=== PATIENT | female | born 1955 | race Caucasian/White ===

== ENCOUNTER 2021-05-04 06:59 | Emergency (ER) | payer MEDICARE, OTHER ==
[2021-05-04 07:30] VITALS: PULSE 61; O2SAT 99
[2021-05-04] MEDS ORDERED: TORAdol 30 mg Injection IM ONE (07:32)
[2021-05-04] MEDS ORDERED: TORAdol 30 mg Injection ONE (07:41)
--- NOTE | 2021-05-04 07:48 | ERPHSYRPT ---
- History of Present Illness Time Seen by Provider: 05/04/21 07:44 Source: patient Exam Limitations: no limitations Patient Subjective Stated Complaint: Pt fell over her suitcase in the dark at home and landed on her left shoulder and chin Triage Nursing Assessment: Pt was brought to the ER by her sister, benjamin souza, rates pain as 8/10, left shoulder/clavicle appears to be dislocated, fell on chin and states that it is sore but not real concerned, denied LOC, pt fell earlier in the week [facility] and has a sutured right eyebrow, denies any other injuries at this time Physician History: Pt fell over her suitcase in the dark at home and landed on her left shoulder and chin just before arrival to ER. denied LOC, pt fell earlier in the week at the [facility] [place] and has a sutured right eyebrow, denies any other injuries at this time Occurred: just prior to arrival Method of Injury: fell Quality: constant Severity of Pain-Max: moderate Severity of Pain-Current: moderate Extremities Pain Location: shoulder: left Modifying Factors: Improves With: cold therapy Associated Symptoms: none Allergies/Adverse Reactions: codeine Adverse Reaction (Verified 05/04/21 07:32) Home Medications: Venlafaxine HCl [Venlafaxine HCl ER] 150 mg PO DAILY 05/04/21 [History] Travel Risk - International Travel Have you traveled outside of the country in past 3 weeks: No - Coronavirus Screening Are you exhibiting any of the following symptoms?: No Close contact with a COVID-19 positive Pt in past 14-21 Days: No - Vaccine Status Have you recieved a Covid-19 vaccination: 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[employer] - Vaccination Dates Date of 2cond Vaccination (if applicable): 10/2020 - Review of Systems Constitutional: No Symptoms Eyes: No Symptoms Ears, Nose, & Throat: No Symptoms Respiratory: No Symptoms Cardiac: No Symptoms Abdominal/Gastrointestinal: No Symptoms Genitourinary Symptoms: No Symptoms Musculoskeletal: Deformity (left shoulder), Fall Skin: No Symptoms Neurological: No Symptoms Psychological: No Symptoms Endocrine: No Symptoms Hematologic/Lymphatic: No Symptoms - Past Medical History Pertinent Past Medical History: Yes Musculoskeletal History: Other Psycho-Social History: Anxiety, Depression Other Medical History: osteopenia - Past Surgical History Past Surgical History: Yes Other Surgical History: mylomectomy - Social History Smoking Status: Never smoker Exposure to second hand smoke: No Drug Use: none Patient Lives Alone: No - Female History Hx Now: No - Nursing Vital Signs Nursing Vital Signs: Initial Vital Signs Temperature 97.2 F 05/04/21 07:11 Pulse Rate 61 05/04/21 07:11 Blood Pressure 137/76 05/04/21 07:11 O2 Sat by Pulse Oximetry 99 05/04/21 07:11 Pain Scale Pain Intensity 8 - Physical Exam General Appearance: mild distress Eyes, Ears, Nose, Throat Exam: normal ENT inspection Neck Exam: normal inspection Cardiovascular/Respiratory Exam: chest non-tender Abdominal Exam: non-tender Back Exam: normal inspection Shoulder Exam: asymmetry, bone tenderness, deformity, limited ROM, pain, soft tissue tenderness, swelling SpO2: 99 - Course Nursing assessment & vital signs reviewed: Yes - Radiology Exams Shoulder X-ray Interpretation: Reviewed by me, Displaced Fracture (left neck of humurus) Ordered Tests: Active Orders 24 hr Category Date Time Status CLAVICLE Stat Exams 05/04/21 07:36 Taken SHOULDER Stat Exams 05/04/21 07:23 Taken Medication Summary Discontinued Medications Generic Name Dose Route Start Last Admin Trade Name Freq PRN Reason Stop Dose Admin Ketorolac Tromethamine 60 mg 05/04/21 07:32 05/04/21 07:42 Toradol 30 Mg Injection IM 05/04/21 07:33 60 mg STAT ONE Administration Ketorolac Tromethamine Confirm 05/04/21 07:41 Toradol 30 Mg Injection Administered 05/04/21 07:42 Dose 60 mg .ROUTE .STK-MED ONE - Progress Progress: unchanged, pain not gone completely Discussed with : Other (Dr Newton (ortho)) Counseled pt/family regarding: diagnosis, need for follow-up, rad results - Departure Departure Disposition: Home Clinical Impression: Humerus fracture Qualifiers: Encounter type: initial encounter Humerus Location: surgical neck Fracture type: closed Fracture morphology: 2-part Fracture alignment: displaced Laterality: left Qualified Code(s): S42.222A - 2-part displaced fracture of surgical neck of left humerus, initial encounter for closed fracture Condition: Stable Critical Care Time: Yes Critical Care Time(excluding separately billable procedures): Critical 30-74 mins Referrals: DOCTOR,NO FAMILY [Primary Care Provider] - TY KING MD [COURTESY STAFF] - [facility] [place]-[facility] M-F [id number] Instructions: Shoulder Fracture (DC) Additional Instructions: Discharge/Care Plan JOSEFINA MARTÍNEZ was seen on 05/04/21 in the Emergency Room. The patient was counseled regarding Diagnosis,Lab results, Imaging studies, need for follow up and when to return to the Emergency Room. Prescriptions given: Discharge Note I have spoken with the patient and/or caregivers. I have explained the patient's condition, diagnosis and treatment plan based on the information available to me at this time. I have answered the patient's and/or caregiver's questions and addressed any concerns. The patient and/or caregivers have as good understanding of the patient's diagnosis, condition and treatment plan as can be expected at this point. The vital signs have been stable. The patient's condition is stable and appropriate for discharge from the emergency department. The patient will pursue further outpatient evaluation with the primary care physician or other designated or consulting physician as outlined in the discharge instructions. The patient and/or caregivers are agreeable to this plan of care and follow-up instructions have been explained in detail. The patient and/or caregivers have received these instruction. The patient/and or caregivers are aware that any significant change in condition or worsening of symptoms s hould prompt an immediate return to this or the closest emergency department or call 911. JOSEFINA MARTÍNEZ was seen on 05/04/21 n the Emergency Room. At that time you were treated for an emergent condition, during your visit Laboratory, Radiology and/or other procedures may have been ordered. It is very important that you follow-up with your Primary Care Physician NO FAMILY DOCTOR within the next 24- 48 hours to review your Emergency Room visit and the final results of testing that was ordered. Some test results such as Urine Cultures, Blood Cultures, and other cultures if ordered will not be finalized for 24-48 hours. If you do not have a Primary Care Provider please call the medical records department at [phone] ext [phone] to obtain a copy of your results or you may sign into our patient portal to obtain these results by visiting us @ [email or web address] and completing the following steps: 1. Click on the Patient Portal link 2. Click the Patient Self Enrollment Link to complete the enrollment form and entering your 3. Once the enrollment form is completed you will receive an email with a temporary ID and password at the email address you provided. 4. Next choose a user name and password. Your user name must be at least 4 characters long and your password must be at least 4 characters long. 5. Choose a security question from the list and provide your answer to the question. If you already have signed into the Health Portal you may access your Health Care Information 09/03 by the following steps: 1. Login to our website @ [email or web address] 2. Enter your original user name and password. FAQS The [facility] Health Portal is an online tool that contains your Lab Results, Radiology Reports, Visit History, Discharge Instructions and Health Summary Lab and Radiology Results will not be available for 72 hours on the portal. The Portal is a secure site, passwords are encryted and URLs are re-written so they cannot be copied and pasted. You and authorized family members are the only ones who can access your Portal. Also there is a timeout feature that protects your information if you leave the Portal page open. If you have technical difficulty please use the Contact Us link on the page this will allow you to submit any questions you have regarding the Portal or you may contact the Medical Record Department at [phone]. Prescriptions: Naproxen 375 mg [Naprosyn 375 mg] 375 mg PO Q8H #30 tablet
[2021-05-04 08:07] VITALS: BP 124/71
--- NOTE | 2021-05-04 08:30 | XRAY ---
Indication: Pain following fall. Comparison: None 2 view left clavicle demonstrates moderately displaced humeral neck fracture. Elsewhere osteopenia, mild acromioclavicular degenerative arthropathy, and tiny left lung calcified granulomas. No other bony, articular, or soft tissue abnormalities.
--- NOTE | 2021-05-04 08:32 | XRAY ---
Indication: Pain following fall. Comparison: None 3 view left shoulder demonstrates moderately displaced humeral neck fracture. Elsewhere osteopenia, mild acromioclavicular degenerative arthropathy, and tiny left lung calcified granulomas. No other bony, articular, or soft tissue abnormalities.
== END 2021-05-04 09:00 | disposition home or self-care (01) ==
LOC: ED 06:59
DX: S42.222A 2-part displaced fracture of surgical neck of left humerus, initial encounter for closed fracture (principal); W01.0XXA Fall on same level from slipping, tripping and stumbling without subsequent striking against object, initial encounter; Y93.01 Activity, walking, marching and hiking; Y92.009 Unspecified place in unspecified non-institutional (private) residence as the place of occurrence of the external cause
CPT/HCPCS: 73000; 73030; 96372; 99283; 99291; J1885; L3650

== ENCOUNTER 2022-06-11 14:34 | Emergency (ER) | payer MEDICARE, OTHER ==
--- NOTE | 2022-06-11 14:37 | ERPHSYRPT ---
- History of Present Illness Time Seen by Provider: 06/11/22 14:37 Source: patient, EMS Exam Limitations: no limitations Physician History: This is an obese 67-year-old white female patient who has history of anxiety and depression who was brought into the emergency room by ambulance service secondary to a fall. She is unable to stand or ambulate. Patient has had right hip replacement as well as surgical repair with hardware present in the left shoulder in the past. Patient stated that she missed a step and then fell hitting her left hip and left shoulder. She did not hit her head. She has no complaints of headache. She denies neck pain. There was no loss of consciousness. She has no chest pain. She is not short of breath and she has no abdominal pain. Occurred: just prior to arrival Reason for Fall: fell from standing pos (Patient missed a step and tripped and fell) Injuries/Pain Location: upper extremity (Left shoulder), lower extremity (Left hip) Loss of Consciousness: no loss of consciousness Quality: aching Severity of Pain-Max: moderate Severity of Pain-Current: moderate Modifying Factors: Improves With: movement Associated Symptoms (Fall): extremity injury (Left shoulder and left hip), trouble walking, No neck pain Allergies/Adverse Reactions: codeine Adverse Reaction (Verified 06/11/22 14:37) Home Medications: Venlafaxine HCl [Venlafaxine HCl ER] 150 mg PO DAILY 05/04/21 [History] Travel Risk - International Travel Have you traveled outside of the country in past 3 weeks: No - Coronavirus Screening Are you exhibiting any of the following symptoms?: No Close contact with a COVID-19 positive Pt in past 14-21 Days: No - Vaccine Status Have you recieved a Covid-19 vaccination: 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[employer] - Vaccination Dates Date of 2cond Vaccination (if applicable): 10/2020 - Review of Systems Constitutional: No Symptoms Eyes: No Symptoms Ears, Nose, & Throat: No Symptoms Respiratory: No Symptoms Cardiac: No Symptoms Abdominal/Gastrointestinal: No Symptoms Genitourinary Symptoms: No Symptoms Musculoskeletal: Fall, Injury (Left hip and left shoulder) Skin: No Symptoms Neurological: No Symptoms Psychological: No Symptoms Endocrine: No Symptoms Hematologic/Lymphatic: No Symptoms Immunological/Allergic: No Symptoms All Other Systems: Reviewed and Negative - Past Medical History Pertinent Past Medical History: Yes Musculoskeletal History: Other Psycho-Social History: Anxiety, Depression Other Medical History: osteopenia - Past Surgical History Past Surgical History: Yes Other Surgical History: mylomectomy - Social History Smoking Status: Never smoker Exposure to second hand smoke: No Drug Use: none Patient Lives Alone: No - Nursing Vital Signs Nursing Vital Signs: Initial Vital Signs Temperature 97.1 F 06/11/22 14:39 Pulse Rate 74 06/11/22 14:39 Respiratory Rate 18 06/11/22 14:39 Blood Pressure 153/99 06/11/22 14:39 O2 Sat by Pulse Oximetry 97 06/11/22 14:39 Pain Scale Pain Intensity 7 - Eric Coma Score Best Eye Response (Eric): (4) open spontaneously Best Verbal Response ([place]): (5) oriented Best Motor Response ([place]): (6) obeys commands Eric Total: 15 - Physical Exam General Appearance: no apparent distress, alert, anxiety, obese Head Injury: no evidence of injury Eye Exam: PERRL/EOMI, eyes nml inspection ENT Exam: airway nml Neck Exam: supple, trachea midline, full range of motion, normal alignment, normal inspection Respiratory/Chest Exam: normal breath sounds, No chest tenderness, No respiratory distress, No ecchymosis, No crepitus Cardiovascular Exam: normal heart sounds Gastrointestinal Exam: soft, normal bowel sounds, No tenderness Rectal Exam: not done Back Exam: normal inspection, normal range of motion, No CVA tenderness, No vertebral tenderness Extremity Exam: evidence of injury (Left hip with external rotation and shortening left lower extremity), hip tenderness (Left), pain with movement, other (Cannot weight-bear left lower extremity) Neurologic Exam: alert, oriented x 3, cooperative, 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 as tested, normal mood/affect, sensation nml Skin Exam: normal color, warm, dry SpO2 Interpretation: normal O2 Delivery: Room Air - Course Nursing assessment & vital signs reviewed: Yes Ordered Tests: Active Orders 24 hr Category Date Time Status Catheter-[place] STAT Care 06/11/22 15:33 Active IV Insertion STAT Care 06/11/22 15:33 Active FEMUR Stat Exams 06/11/22 17:04 Ordered HIP UNI (2V) INCL PEL IF DONE Stat Exams 06/11/22 15:34 Completed SHOULDER Stat Exams 06/11/22 15:07 Completed CBC W DIFF Stat Lab 06/11/22 15:50 Completed CMP Stat Lab 06/11/22 15:50 Completed PROTIME WITH INR Stat Lab 06/11/22 15:50 Completed UA W/RFX CULTURE Stat Lab 06/11/22 15:53 Completed Medication Summary Generic Name Dose Route Start Last Admin Trade Name Giuliana PRN Reason Stop Dose Admin Sodium Chloride 1,000 mls @ 100 mls/hr 06/11/22 15:45 06/11/22 15:55 Sodium Chloride 0.9% 1000 Ml IV 07/11/22 15:44 100 mls/hr .Q10H WISAM Administration Discontinued Medications Generic Name Dose Route Start Last Admin Trade Name Giuliana PRN Reason Stop Dose Admin Morphine Sulfate 4 mg 06/11/22 15:57 06/11/22 16:05 Morphine Sulfate 4 Mg/Ml Injection IV 06/11/22 15:58 4 mg STAT ONE Administration Morphine Sulfate Confirm 06/11/22 16:04 Morphine Sulfate 4 Mg/Ml Injection Administered 06/11/22 16:05 Dose 4 mg .ROUTE .STK-MED ONE Morphine Sulfate 4 mg 06/11/22 17:08 06/11/22 17:10 Morphine Sulfate 4 Mg/Ml Injection IV 06/11/22 17:09 4 mg STAT ONE Administration Morphine Sulfate Confirm 06/11/22 17:09 Morphine Sulfate 4 Mg/Ml Injection Administered 06/11/22 17:10 Dose 4 mg .ROUTE .STK-MED ONE Ondansetron HCl 4 mg 06/11/22 15:57 06/11/22 16:05 Ondansetron Hcl 4 Mg/2 Ml Vial IV 06/11/22 15:58 4 mg STAT ONE Administration Ondansetron HCl Confirm 06/11/22 16:04 Ondansetron Hcl 4 Mg/2 Ml Vial Administered 06/11/22 16:05 Dose 4 mg .ROUTE .STK-MED ONE Lab/Rad Data: Laboratory Result Diagrams 06/11/22 15:50 06/11/22 15:50 Laboratory Results 06/11/22 06/11/22 06/11/22 Range/Units 15:53 15:50 15:50 WBC (4.0-10.5) x10^3/uL RBC (4.1-5.4) x10^6/uL Hgb (12.0-16.0) g/dL Hct (35-47) % MCV (78-100) fL MCH (26-32) pg MCHC (32-36) g/dL RDW (11.5-14.0) % Plt Count (150-450) x10^3/uL MPV (7.5-11.0) fL Gran % (36.0-66.0) % Immature Gran % (Auto) (0.00-0.4) % Nucleat RBC Rel Count (0.00-0.1) % Eos # (Auto) (0-0.5) x10^3/uL Immature Gran # (Auto) (0.00-0.03) x10^3u/L Absolute Lymphs (auto) (1.0-4.6) x10^3/uL Absolute Monos (auto) (0.0-1.3) x10^3/uL Absolute Nucleated RBC (0.00-0.01) x10^3u/L Lymphocytes % (24.0-44.0) % Monocytes % (0.0-12.0) % Eosinophils % (0.00-5.0) % Basophils % (0.0-0.4) % Absolute Granulocytes (1.4-6.9) x10^3/uL Basophils # (0-0.4) x10^3/uL PT 10.1 (9.4-12.5) SECONDS INR 0.95 (0.8-3.0) Sodium 134 L (137-145) mmol/L Potassium 3.7 (3.5-5.1) mmol/L Chloride 100 (98-107) mmol/L Carbon Dioxide 27 (22-30) mmol/L Anion Gap 10.4 (5-15) MEQ/L BUN 12 (7-17) mg/dL Creatinine 0.56 (0.52-1.04) mg/dL Estimated GFR > 60.0 ML/MIN Glucose 101 (74-106) mg/dL Calcium 8.9 (8.4-10.2) mg/dL Total Bilirubin 0.30 (0.2-1.3) mg/dL AST 25 (14-36) U/L ALT 22 (0-35) U/L Alkaline Phosphatase 119 (38-126) U/L Serum Total Protein 8.1 (6.3-8.2) g/dL Albumin 4.8 (3.5-5.0) g/dL Urinalys Dipstick Clnc MAIN LAB Urine Color YELLOW (YELLOW) Urine Appearance CLEAR (CLEAR) Urine pH 7.0 (5-6) Ur Specific [place] 1.015 (1.005-1.025) POC Urine Protein Conf NEGATIVE (Negative) Urine Ketones NEGATIVE (NEGATIVE) Urine Nitrite NEGATIVE (NEGATIVE) Urine Bilirubin NEGATIVE (NEGATIVE) Urine Urobilinogen 0.2 (0-1) mg/dL Urine Leukocytes NEGATIVE (NEGATIVE) Urine WBC (Auto) NONE (0-5) /HPF Urine RBC (Auto) Not Reportable U Epithel Cells (Auto) Not Reportable Urine Bacteria (Auto) Not Reportable Urine RBC NEGATIVE (0-5) Adan/ul Urine Mucus (Auto) SLIGHT (NEGATIVE) /HPF Ur Culture Indicated? NO Urine Glucose NEGATIVE (NEGATIVE) mg/dL 06/11/22 Range/Units 15:50 WBC 7.6 (4.0-10.5) x10^3/uL RBC 4.20 (4.1-5.4) x10^6/uL Hgb 12.3 (12.0-16.0) g/dL Hct 39.1 (35-47) % MCV 93.1 (78-100) fL MCH 29.3 (26-32) pg MCHC 31.5 L (32-36) g/dL RDW 13.2 (11.5-14.0) % Plt Count 266 (150-450) x10^3/uL MPV 9.5 (7.5-11.0) fL Gran % 76.1 H (36.0-66.0) % Immature Gran % (Auto) 1.0 H (0.00-0.4) % Nucleat RBC Rel Count 0.0 (0.00-0.1) % Eos # (Auto) 0.11 (0-0.5) x10^3/uL Immature Gran # (Auto) 0.08 H (0.00-0.03) x10^3u/L Absolute Lymphs (auto) 1.17 (1.0-4.6) x10^3/uL Absolute Monos (auto) 0.44 (0.0-1.3) x10^3/uL Absolute Nucleated RBC 0.00 (0.00-0.01) x10^3u/L Lymphocytes % 15.4 L (24.0-44.0) % Monocytes % 5.8 (0.0-12.0) % Eosinophils % 1.4 (0.00-5.0) % Basophils % 0.3 (0.0-0.4) % Absolute Granulocytes 5.80 (1.4-6.9) x10^3/uL Basophils # 0.02 (0-0.4) x10^3/uL PT (9.4-12.5) SECONDS INR (0.8-3.0) Sodium (137-145) mmol/L Potassium (3.5-5.1) mmol/L Chloride (98-107) mmol/L Carbon Dioxide (22-30) mmol/L Anion Gap (5-15) MEQ/L BUN (7-17) mg/dL Creatinine (0.52-1.04) mg/dL Estimated GFR ML/MIN Glucose (74-106) mg/dL Calcium (8.4-10.2) mg/dL Total Bilirubin (0.2-1.3) mg/dL AST (14-36) U/L ALT (0-35) U/L Alkaline Phosphatase (38-126) U/L Serum Total Protein (6.3-8.2) g/dL Albumin (3.5-5.0) g/dL Urinalys Dipstick Clnc Urine Color (YELLOW) Urine Appearance (CLEAR) Urine pH (5-6) Ur Specific [place] (1.005-1.025) POC Urine Protein Conf (Negative) Urine Ketones (NEGATIVE) Urine Nitrite (NEGATIVE) Urine Bilirubin (NEGATIVE) Urine Urobilinogen (0-1) mg/dL Urine Leukocytes (NEGATIVE) Urine WBC (Auto) (0-5) /HPF Urine RBC (Auto) U Epithel Cells (Auto) Urine Bacteria (Auto) Urine RBC (0-5) [place]/ul Urine Mucus (Auto) (NEGATIVE) /HPF Ur Culture Indicated? Urine Glucose (NEGATIVE) mg/dL - Progress Progress: improved, pain not gone completely Progress Note: 06/11/22 16:47 X-ray of left hip shows an impacted, angulated left femoral neck fracture. No joint dislocation X-ray of left shoulder shows no acute fracture but there is metal hardware from a prior repair and nonhealing of a prior, old fracture. No dislocation present. 06/11/22 17:15 Medical decision making: This patient has an acute fracture of the neck of the left femur. She wants to have her surgery performed by Dr. Edu Tolliver out of [facility] in [place]. I called [phone] and spoke with his nurse practitioner Connie at [phone]. She told me to call [facility] call at [phone]. They were contacted I was then referred to Jose L Echevarria which is a PA for the [facility]. Apparently, there is a backup of bed availability and therefore I was told to transfer the patient to the emergency room at [facility] in [place]. I was told I did not need to provide a doctor to doctor report. I was told this would all be taking care of for me. However I was given a phone number for the nurse to give report to the charge nurse at [phone]. I was also told to fax a facesheet to [phone]. I gave this information to Lilo our nurse here in the emergency department. I was also asked to get the full left femur x-ray which I ordered. All the x-rays would be sent to the [facility] for [facility] [place]. Counseled pt/family regarding: lab results, diagnosis, rad results - Departure Departure Disposition: Transfer Clinical Impression: Fracture of femoral neck, left, closed Condition: Stable Critical Care Time: No Referrals: DOCTOR,NO FAMILY [Primary Care Provider] - Follow up/PCP as directed
[2022-06-11] MEDS ORDERED: Sodium Chloride 0.9% 1000 ML 1,000 ML IV SCH (15:45)
[2022-06-11] MEDS ORDERED: Sodium Chloride 0.9% 1000 ML 1,000 ML ONE (15:54)
[2022-06-11] MEDS ORDERED: MORPHINE SULFATE 4 MG INJ IV ONE ×3 (15:57→19:51)
[2022-06-11] MEDS ORDERED: Zofran 4 MG/2 ML VIAL IV ONE (15:57)
[2022-06-11 16:01] LABS: Basophil (Absolute #) 0.02 x10^3/uL (0-0.4); Eosinophil % 1.4 % (0.00-5.0); Eosinophil (Absolute #) 0.11 x10^3/uL (0-0.5); Hematocrit 39.1 % (35-47); Hemoglobin 12.3 g/dL (12.0-16.0); Lymphocyte (Absolute #) 1.17 x10^3/uL (1.0-4.6); Lymphocytes % 15.4 % (24.0-44.0); Mean Cell Volume 93.1 fL (78-100); Mean Corpuscular Hemoglobin 29.3 pg (26-32); Mean Corpuscular Hgb Concent. 31.5 g/dL (32-36); Mean Platelet Volume 9.5 fL (7.5-11.0); Monocyte (Absolute #) 0.44 x10^3/uL (0.0-1.3); Monocytes % 5.8 % (0.0-12.0); Neutrophil % 76.1 % (36.0-66.0); Platelet Count 266 x10^3/uL (150-450); Red Cell Distribution Width 13.2 % (11.5-14.0); White Blood Count 7.6 x10^3/uL (4.0-10.5)
[2022-06-11] MEDS ORDERED: Zofran 4 MG/2 ML VIAL ONE (16:04)
[2022-06-11] MEDS ORDERED: MORPHINE SULFATE 4 MG INJ ONE ×3 (16:04→19:52)
[2022-06-11 16:05] LABS: Appearance CLEAR (CLEAR); Bilirubin NEGATIVE (NEGATIVE); Dipstick done @ ? MAIN LAB; Glucose NEGATIVE (NEGATIVE); Ketones NEGATIVE (NEGATIVE); Nitrite NEGATIVE (NEGATIVE); Protein,Urine Dip NEGATIVE (Negative); RBC NEGATIVE Ery/ul (0-5); Specific Gravity 1.015 (1.005-1.025); Urobilinogen 0.2 mg/dL (0-1)
[2022-06-11 16:08] LABS: Mucus SLIGHT /HPF (NEGATIVE)
[2022-06-11 16:11] LABS: Urine Cultured Indicated? NO
[2022-06-11 16:16] LABS: INR 0.95 (0.8-3.0); PROTIME 10.1 SECONDS (9.4-12.5)
[2022-06-11 16:17] LABS: ALBUMIN 4.8 g/dL (3.5-5.0); ALKALINE PHOSPHATASE 119 U/L (38-126); ANION GAP 10.4 MEQ/L (5-15); BLOOD UREA NITROGEN 12 mg/dL (7-17); CHLORIDE 100 mmol/L (98-107); Calcium 8.9 mg/dL (8.4-10.2); Carbon Dioxide 27 mmol/L (22-30); Creatinine 1 0.56 mg/dL (0.52-1.04); EST GLOMERULAR FILTRATION RATE > 60.0 ML/MIN; Glucose 101 mg/dL (74-106); Potassium 3.7 mmol/L (3.5-5.1); SGOT/AST 25 U/L (14-36); SGPT/ALT 22 U/L (0-35); SODIUM 134 mmol/L (137-145); Total Protein 8.1 g/dL (6.3-8.2)
--- NOTE | 2022-06-11 16:31 | XRAY ---
Indication: Pain following fall. Comparison: May 04, 2021 3 view left shoulder demonstrates new intact intramedullary saira with proximal/distal screws fixating previous humeral neck fracture in good apposition/alignment. Fracture appears incompletely healed. Elsewhere stable osteopenia and AC degenerative arthropathy. No other bony, articular, or soft tissue abnormalities.
--- NOTE | 2022-06-11 16:33 | XRAY ---
Indication: Pain following fall. Comparison: None AP pelvis and 2 view left hip demonstrates impacted/angulated acute left femur neck fracture. Elsewhere osteopenia and partially visualized right total hip arthroplasty.
[2022-06-11 19:53] VITALS: BP 145/87; PULSE 72; O2SAT 96
--- NOTE | 2022-06-12 08:43 | XRAY ---
Indication: Pain following fall. Comparison: None 2 view left femur demonstrates femur neck fracture reported on same day hip exam. Elsewhere osteopenia, minimal/mild tricompartmental knee degenerative arthropathy, and tiny nonspecific knee effusion.
== END 2022-06-11 19:58 | disposition short-term general hospital (02) ==
LOC: ED 14:34
DX: S72.002A Fracture of unspecified part of neck of left femur, initial encounter for closed fracture (principal); W10.9XXA Fall (on) (from) unspecified stairs and steps, initial encounter; M25.552 Pain in left hip; M25.512 Pain in left shoulder
CPT/HCPCS: 36415; 51702; 73030; 73502; 73552; 80053; 81015; 85025; 85610; 96374; 96375; 96376; 99285; J2270; J2405